=== PATIENT | male | born 1945 | race Caucasian/White ===

== ENCOUNTER → 2017-09-01 | Outpatient (CLI) | payer OTHER ==
[~2017-09-01] VITALS: Ht 185.4 cm; Wt 159.1 kg
[~2017-09-01] MED LIST: AMLODIPINE-BEN1 EACH PO; BENICAR HCT 401 EAC1 PO; HYDROCODON-ACE1 EAC7 PO; LANTUS 3 M100 UNITS1 SC; MELOXICAM15 MG PO; MELOXICAM7.5 MG PO; METAGLIP 5/51 TABLET PO; MULTIVITAMIN1 EAC2 PO; NORCO 5/3251 TABLET PO
[2017-09-01 10:43] LABS: POINT-OF-CARE METER ID UU14107333
== END | disposition home or self-care (01) ==
LOC: AMB 09:37
PROVIDERS: Internal Medicine Gastroenterology
DX: K62.1 Rectal polyp (principal); K64.8 Other hemorrhoids; K57.30 Diverticulosis of large intestine without perforation or abscess without bleeding; K62.5 Hemorrhage of anus and rectum; I10 Essential (primary) hypertension; E78.5 Hyperlipidemia, unspecified; E11.9 Type 2 diabetes mellitus without complications; J45.909 Unspecified asthma, uncomplicated; G47.33 Obstructive sleep apnea (adult) (pediatric); Z79.4 Long term (current) use of insulin
CPT/HCPCS: 82948; 88305; 93005